=== PATIENT | female | born 1960 | race Caucasian/White ===

== ENCOUNTER → 2016-07-17 | Outpatient (CLI) | payer BC ==
--- NOTE | 2016-07-17 15:13 | MAMMOGRAPHY REPORT ---
BILATERAL DIGITAL SCREENING MAMMOGRAM TOMOSYNTHESIS WITH CAD: 07/17/2016 CLINICAL HISTORY: Routine screening. Patient has no complaints. TECHNIQUE: Breast tomosynthesis in addition to standard 2D mammography was performed. Current study was also evaluated with a Computer Aided Detection (CAD) system. COMPARISON: Comparison is made to exams dated: 07/20/2015 mammogram, 07/13/2015 mammogram, 07/10/2014 mammogram, and 07/09/2013 mammogram - [facility]. BREAST COMPOSITION: The tissue of both breasts is extremely dense, which lowers the sensitivity of mammography. FINDINGS: There are diffuse bilateral microcalcifications. No obvious new mass, architectural disto rtion or cluster of suspicious microcalcifications is seen. IMPRESSION: ACR BI-RADS CATEGORY 1: NEGATIVE There is no mammographic evidence of malignancy. A 1 year screening mammogram is recommended. The p atient will receive written notification of the results. Approximately 10% of breast cancers are not detected with mammography. A negative mammographic repor t should not delay biopsy if a clinically suggestive mass is present. Lala Resendiz M.D. ay/:07/17/2016 09:33:35 Shake Sawyer: Vandana Mcclure RT(R)(M)(BD), [facility] letter sent: Normal 1/2 BI-RADS Code: ACR BI-RADS Category 1: Negative
== END | disposition home or self-care (01) ==
LOC: C.MAMM 09:04
PROVIDERS: ATTEND Obstetrics & Gynecology
DX: Z12.31 Encounter for screening mammogram for malignant neoplasm of breast (principal)

== ENCOUNTER → 2017-02-08 | Outpatient (CLI) | payer BC | END | disposition home or self-care (01) | LOC: C.PAPS 11:39 | PROVIDERS: ATTEND Obstetrics & Gynecology | DX: Z01.419 Encounter for gynecological examination (general) (routine) without abnormal findings (principal); Z11.51 Encounter for screening for human papillomavirus (HPV) ==

== ENCOUNTER → 2017-07-19 | Outpatient (CLI) | payer OTHER ==
--- NOTE | 2017-07-19 14:03 | MAMMOGRAPHY REPORT ---
BILATERAL DIGITAL SCREENING MAMMOGRAM TOMOSYNTHESIS WITH CAD: 07/19/2017 CLINICAL HISTORY: Routine screening. Patient has no complaints. TECHNIQUE: Breast tomosynthesis in addition to standard 2D mammography was performed. Current study was also evaluated with a Computer Aided Detection (CAD) system. COMPARISON: Comparison is made to exams dated: 07/17/2016 mammogram, 07/13/2015 mammogram, 07/10/2014 m ammogram, 07/09/2013 mammogram, and 07/08/2012 mammogram - [facility]. BREAST COMPOSITION: The tissue of both breasts is extremely dense, which lowers the sensitivity of m ammography. FINDINGS: There are innumerable diffuse bilateral benign-appearing punctate and round microcalcifica tions and a few benign rim calcifications in the breasts. No suspicious spiculated or irregular mass , architectural distortion or cluster of new, suspicious microcalcifications is seen. IMPRESSION: ACR BI-RADS CATEGORY 1: NEGATIVE There is no mammographic evidence of malignancy. A 1 year screening mammogram is recommended. The pa tient will receive written notification of the results. Approximately 10% of breast cancers are not detected with mammography. A negative mammographic report should not delay biopsy if a clinically suggestive mass is present. Lala Resendiz M.D. ay/:07/19/2017 10:18:22 [employer]: Effie BRADLEY)(M), [facility] letter sent: Normal 1/2 BI-RADS Code: ACR BI-RADS Category 1: Negative
== END | disposition home or self-care (01) ==
LOC: C.MAMM 09:11
PROVIDERS: ATTEND Obstetrics & Gynecology
DX: Z12.31 Encounter for screening mammogram for malignant neoplasm of breast (principal)

== ENCOUNTER → 2017-09-28 | Outpatient (CLI) | payer OTHER ==
[2017-09-28 10:21] LABS: BASO ABS # 0.04 K/uL (0-0.2); EOS % 1.6 %; EOS ABS # 0.06 K/uL (0-0.5); HEMOGLOBIN 13.6 g/dL (12.0-16.0); IG# 0.01 K/uL (0.00-0.02); LYMPH % 45.1 %; LYMPH ABS # 1.74 K/uL (1.2-3.4); MEAN CELL VOLUME 90.5 fL (80-100); MEAN CORPUSCULAR HEMOGLOBIN 30.8 pg (25-34); MEAN PLATELET VOLUME 11.3 fL (7.4-10.4); MONO % 7.3 %; MONO ABS # 0.28 K/uL (0.11-0.59); NEUT % 44.7 %; NEUT ABS # 1.73 K/uL (1.4-6.5); PLATELET COUNT 260 K/uL (130-400); RED CELL DISTRIBUTION WIDTH SD 46.3 fL (36.4-46.3); WHITE BLOOD COUNT 3.86 K/uL (4.8-10.8)
[2017-09-28 10:52] LABS: ALBUMIN 3.6 gm/dl (3.4-5.0); ALT/SGPT 20 U/L (12-78); AST/SGOT 18 U/L (15-37); BLOOD UREA NITROGEN 12 mg/dl (7-18); CALCIUM 8.8 mg/dl (8.5-10.1); CARBON DIOXIDE 27 mmol/L (21-32); GLUCOSE 87 mg/dl (70-99); POTASSIUM 4.2 mmol/L (3.5-5.1); SODIUM 137 mmol/L (136-145)
[2017-09-28 11:01] LABS: ALKALINE PHOSPHATASE 60 U/L (45-117); CHOLESTEROL 234 mg/dl (0-200); LDL CHOLESTEROL CALCULATED 112 mg/dl; TOTAL PROTEIN 7.1 gm/dl (6.4-8.2); TRANSFERRIN 442 mg/dl (200-360)
== END | disposition home or self-care (01) ==
LOC: C.LAB1850 09:21
PROVIDERS: ATTEND Physician Assistant
DX: Z13.220 Encounter for screening for lipoid disorders (principal); D64.9 Anemia, unspecified; L65.9 Nonscarring hair loss, unspecified